=== PATIENT | male | born 2000 | race Caucasian/White ===

== ENCOUNTER 2024-05-13 10:59 | Outpatient (CLI) | payer BC, SELFPAY | END 2024-05-13 11:00 | disposition home or self-care (01) | PROVIDERS: Visit Provider Obstetrics & Gynecology | DX: F64.9 Gender identity disorder, unspecified (principal); Z79.899 Other long term (current) drug therapy | CPT/HCPCS: 82670; 84132; 84403 ==

== ENCOUNTER 2024-08-17 13:31 | Outpatient (CLI) | payer BC, SELFPAY | END 2024-08-17 13:32 | disposition home or self-care (01) | LOC: NFLDREF 08-22 03:02 | PROVIDERS: Visit Provider Obstetrics & Gynecology | DX: F64.9 Gender identity disorder, unspecified (principal); Z79.899 Other long term (current) drug therapy | CPT/HCPCS: 82670; 84132; 84403 ==

== ENCOUNTER 2024-12-12 11:10 | Outpatient (CLI) | payer BC, SELFPAY | END 2024-12-12 11:11 | disposition home or self-care (01) | LOC: NFLDREF 12-14 16:41 | PROVIDERS: Visit Provider Obstetrics & Gynecology | DX: Z79.890 Hormone replacement therapy (principal) | CPT/HCPCS: 82670; 84132; 84403 ==

== ENCOUNTER 2025-03-31 11:05 | Outpatient (CLI) | payer BC, SELFPAY | END 2025-03-31 11:06 | disposition home or self-care (01) | LOC: NFLDREF 04-06 14:32 | PROVIDERS: Visit Provider Obstetrics & Gynecology | DX: F64.9 Gender identity disorder, unspecified (principal) | CPT/HCPCS: 82670; 84132; 84403 ==